=== PATIENT | male | born 1950 | race Caucasian/White ===

== ENCOUNTER → 2017-01-23 | Outpatient (CLI) | payer OTHER ==
[~2017-01-23] MED LIST: FENTANYL PF 100 MCG/2ML ONE; MIDAZOLAM 1 MG/ML, 5ML ONE
== END | disposition home or self-care (01) ==
LOC: RAD 08:20
PROVIDERS: ATTEND Internal Medicine
DX: M48.061 Spinal stenosis, lumbar region without neurogenic claudication (principal); M51.36 Other intervertebral disc degeneration, lumbar region; M48.07 Spinal stenosis, lumbosacral region; M43.16 Spondylolisthesis, lumbar region
CPT/HCPCS: 72148; 99156; 99157; J2250; J3010

== ENCOUNTER 2020-02-10 06:59 | Outpatient (CLI) | payer OTHER ==
[2020-02-10] MEDS ORDERED: NALOXONE 1 MG/ML, 2ML ONE (07:40)
[2020-02-10] MEDS ORDERED: FLUMAZENIL 0.1 MG/1 ML, 5ML ONE (07:40)
[2020-02-10] MEDS ORDERED: MIDAZOLAM 1 MG/ML, 5ML ONE (07:40)
[2020-02-10] MEDS ORDERED: FENTANYL PF 100 MCG/2ML ONE (07:40)
== END 2020-02-10 23:59 | disposition home or self-care (01) ==
LOC: RAD 06:59
PROVIDERS: ATTEND Physician Assistant
DX: M47.896 Other spondylosis, lumbar region (principal); M51.36 Other intervertebral disc degeneration, lumbar region; M48.061 Spinal stenosis, lumbar region without neurogenic claudication; I10 Essential (primary) hypertension; G47.30 Sleep apnea, unspecified; K21.9 Gastro-esophageal reflux disease without esophagitis; M10.9 Gout, unspecified; F32.9 Major depressive disorder, single episode, unspecified; E11.9 Type 2 diabetes mellitus without complications; Z79.899 Other long term (current) drug therapy; Z79.82 Long term (current) use of aspirin; Z87.891 Personal history of nicotine dependence
CPT/HCPCS: 72148; 99156; 99157; J2250; J3010; J2310